=== PATIENT | male | born 1980 | race Caucasian/White ===

== ENCOUNTER 2020-03-20 16:02 | Emergency (ER) | payer MEDICAID, OTHER ==
[~2020-03-20] VITALS: Ht 177.8 cm; Wt 63.4 kg
[2020-03-20 16:03] VITALS: BP 145/94
== END 2020-03-20 18:14 | disposition left against medical advice (07) ==
LOC: M ED 16:02
DX: Z53.21 Procedure and treatment not carried out due to patient leaving prior to being seen by health care provider (principal)

== ENCOUNTER 2020-03-20 18:54 | Emergency (ER) | payer OTHER ==
[~2020-03-20] VITALS: Ht 177.8 cm; Wt 65.9 kg
[2020-03-20 19:19] VITALS: BP 135/85
== END 2020-03-20 21:24 | disposition home or self-care (01) ==
LOC: M ED 18:54
DX: F15.10 Other stimulant abuse, uncomplicated (principal); F17.210 Nicotine dependence, cigarettes, uncomplicated

== ENCOUNTER 2021-05-29 12:30 | Inpatient (IN) | payer MEDICAID, OTHER ==
[~2021-05-29] VITALS: Ht 177.8 cm; Wt 80.0 kg
[2021-05-29] MEDS ORDERED: RISP-8 (13:08)
[2021-05-29 13:34] LABS: HEMATOCRIT 49.5 % (42.0-52.0); HEMOGLOBIN 17.8 g/dl (13.5-17.5); MEAN CORPUSCULAR HEMOGLOBIN 32.4 pg (27.0-33.0); PLATELET COUNT, AUTOMATED 323 10^3/uL (150-450); WHITE BLOOD COUNT 17.3 10^3/uL (4.0-10.0)
[2021-05-29 13:58] LABS: AMPHETAMINES LEVEL URINE POSITIVE (NEGATIVE); BARBITURATES URINE NEGATIVE (NEGATIVE); BENZODIAZEPINES URINE NEGATIVE (NEGATIVE); CANNABINOIDS URINE POSITIVE (NEGATIVE); COCAINE METABOLITE URINE NEGATIVE (NEGATIVE); METHADONE URINE NEGATIVE (NEGATIVE); OPIATES URINE NEGATIVE (NEGATIVE); PHENCYCLIDINE URINE NEGATIVE (NEGATIVE)
[2021-05-29 14:08] LABS: ACETAMINOPHEN LEVEL < 2.0 UG/ML (10.0-30.0); ALBUMIN 4.7 GM/DL (3.2-5.2); ALT/SGPT 17 U/L (12-78); BILIRUBIN,DIRECT 0.4 MG/DL (0.0-0.2); BILIRUBIN,TOTAL 1.7 MG/DL (0.2-1.0); BLOOD UREA NITROGEN 17 MG/DL (7-18); CALCIUM LEVEL 10.6 MG/DL (8.5-10.1); CARBON DIOXIDE LEVEL 18 MEQ/L (21-32); CHLORIDE LEVEL 106 MEQ/L (98-107); CREATININE FOR GFR 1.32 MG/DL (0.70-1.30); ETHYL ALCOHOL (ETHANOL) < 0.003 % (0.000-0.010); GLOMERULAR FILTRATION RATE > 60.0 (>60); GLUCOSE, FASTING 127 MG/DL (70-100); POTASSIUM SERUM 3.8 MEQ/L (3.5-5.1); SALICYLATE LEVEL 3.8 MG/DL (5.0-30.0); SODIUM LEVEL 138 MEQ/L (136-145); TOTAL PROTEIN 8.4 GM/DL (6.4-8.2)
[2021-05-29] MEDS ORDERED: LORazepam 2 MG/ML VIAL IM STA (14:57)
[2021-05-29] MEDS ORDERED: OLANZapine INTRAMUSCULAR 10MG VIAL IM ONE (15:00)
[2021-05-29 15:45] LABS: RSV AMPLIFICATION NEGATIVE (NEGATIVE)
[2021-05-30] MEDS ORDERED: OLANZapine INTRAMUSCULAR 10MG VIAL IM ONE (02:55)
[2021-05-30] MEDS ORDERED: LORazepam 2 MG/ML VIAL IM ONE (02:55)
[2021-05-30 10:42] LABS: HEMATOCRIT 50.9 % (42.0-52.0); HEMOGLOBIN 17.4 g/dl (13.5-17.5); MEAN CORPUSCULAR HEMOGLOBIN 32.2 pg (27.0-33.0); MEAN CORPUSCULAR HGB CONC 34.2 g/dl (32.0-36.5); MEAN CORPUSCULAR VOLUME 94.1 fl (80.0-96.0); PLATELET COUNT, AUTOMATED 255 10^3/uL (150-450); RED BLOOD COUNT 5.41 10^6/uL (4.30-6.10); WHITE BLOOD COUNT 13.3 10^3/uL (4.0-10.0)
[2021-05-30] MEDS ORDERED: HOME MED LIST COMPLETE! XX SCH (10:45)
[2021-05-30 11:11] LABS: ALBUMIN 4.3 GM/DL (3.2-5.2); ALT/SGPT 24 U/L (12-78); BILIRUBIN,TOTAL 1.5 MG/DL (0.2-1.0); BLOOD UREA NITROGEN 24 MG/DL (7-18); CALCIUM LEVEL 9.8 MG/DL (8.5-10.1); CARBON DIOXIDE LEVEL 23 MEQ/L (21-32); CHLORIDE LEVEL 109 MEQ/L (98-107); CREATININE FOR GFR 1.24 MG/DL (0.70-1.30); GLOMERULAR FILTRATION RATE > 60.0 (>60); GLUCOSE, FASTING 77 MG/DL (70-100); POTASSIUM SERUM 4.4 MEQ/L (3.5-5.1); SODIUM LEVEL 139 MEQ/L (136-145); TOTAL PROTEIN 7.8 GM/DL (6.4-8.2)
[2021-05-30] MEDS ORDERED: LORazepam 2 MG TAB PO STA (18:32)
[2021-05-31 22:26] LABS: RSV AMPLIFICATION NEGATIVE (NEGATIVE)
[2021-06-01] MEDS ORDERED: ACETAMINOPHEN TAB 650MG DOSE (2X325MG) PO PRN (11:55)
[2021-06-01] MEDS ORDERED: MOM 30ML SUSPENSION UDC PO PRN (11:55)
[2021-06-01] MEDS ORDERED: MAALOX 30 ML SUSP *UDC PO PRN (11:55)
[2021-06-01] MEDS ORDERED: OLANZapine ORAL DISINTEGRATING TAB 5MG PO PRN (11:55)
[2021-06-01] MEDS: NICOTINE 21MG/24HR 1 EA TRANSDERMAL TD SCH (12:09)
[2021-06-01] MEDS: risperiDONE 1 MG TAB PO SCH ×2 (12:09→20:44)
[2021-06-01 16:47] VITALS: BP 115/87
[2021-06-02 06:55] VITALS: BP 130/90
[2021-06-02] MEDS: risperiDONE 1 MG TAB PO SCH ×2 (08:34→21:36)
[2021-06-02] MEDS: NICOTINE 21MG/24HR 1 EA TRANSDERMAL TD SCH (08:35)
[2021-06-02] MEDS: SERTRALINE HCL 25 MG TABLET PO SCH (09:08)
[2021-06-02 18:49] VITALS: BP 130/78
[2021-06-03 07:10] VITALS: BP 117/80
[2021-06-03 07:53] LABS: CHOLESTEROL RISK RATIO 5.655 (<5)
[2021-06-03] MEDS: NICOTINE 21MG/24HR 1 EA TRANSDERMAL TD SCH (08:28)
[2021-06-03] MEDS: risperiDONE 1 MG TAB PO SCH ×2 (08:28→20:29)
[2021-06-03] MEDS: SERTRALINE HCL 25 MG TABLET PO SCH (08:28)
[2021-06-03 18:42] VITALS: BP 131/74
[2021-06-04 06:33] VITALS: BP 134/80
[2021-06-04] MEDS: risperiDONE 1 MG TAB PO SCH ×2 (08:56→20:27)
[2021-06-04] MEDS: NICOTINE 21MG/24HR 1 EA TRANSDERMAL TD SCH (08:56)
[2021-06-04] MEDS: SERTRALINE HCL 25 MG TABLET PO SCH (08:56)
[2021-06-04 16:54] VITALS: BP 133/90
[2021-06-05 06:26] VITALS: BP 125/87
[2021-06-05] MEDS ORDERED: SERT25TA21 PO (08:33)
[2021-06-05] MEDS ORDERED: RISP-8 PO (08:33)
[2021-06-05] MEDS: SERTRALINE HCL 25 MG TABLET PO SCH (09:44)
[2021-06-05] MEDS: risperiDONE 1 MG TAB PO SCH (09:44)
[2021-06-05] MEDS: NICOTINE 21MG/24HR 1 EA TRANSDERMAL TD SCH (09:44)
== END 2021-06-05 12:59 | disposition home or self-care (01) | DRG 751 ==
LOC: M ED 12:30 → CANBEDREQ 05-30 21:58 → M ED INP 06-01 11:51 → M PSY 06-01 16:45
PROVIDERS: ADMIT Student in an Organized Health Care Education/Training Program; ATTEND Student in an Organized Health Care Education/Training Program
DX: F29 Unspecified psychosis not due to a substance or known physiological condition (principal); F20.9 Schizophrenia, unspecified; F90.9 Attention-deficit hyperactivity disorder, unspecified type; F41.0 Panic disorder [episodic paroxysmal anxiety]; Z62.810 Personal history of physical and sexual abuse in childhood; Z63.4 Disappearance and death of family member; H54.61 Unqualified visual loss, right eye, normal vision left eye; F17.210 Nicotine dependence, cigarettes, uncomplicated; F43.9 Reaction to severe stress, unspecified; F12.10 Cannabis abuse, uncomplicated; Z20.822 Contact with and (suspected) exposure to COVID-19